=== PATIENT | male | born 1975 | race Two or more races ===

== ENCOUNTER → 2024-03-20 | Emergency (ER) | payer SELFPAY ==
[~2024-03-20] VITALS: Ht 172.7 cm; Wt 60.9 kg
[2024-03-20 19:32] VITALS: BP 116/67; PULSE 96; RESP 20; TEMP 98.1
== END | disposition still patient (30) ==
LOC: EMS 19:25 → EDSEX 19:25
DX: Z53.21 Procedure and treatment not carried out due to patient leaving prior to being seen by health care provider (principal)
CPT/HCPCS: 99281; Z7502

== ENCOUNTER 2024-12-26 23:00 | Emergency (ER) | payer MEDICAID ==
[~2024-12-26] VITALS: Ht 170.2 cm; Wt 59.5 kg
[~2024-12-26 23:00] MED LIST: ACET-784 PO; MECL-302 PO
[2024-12-26 23:34] VITALS: BP 129/76; PULSE 99; RESP 16; TEMP 98.5; O2SAT 100
[2024-12-27] MEDS ORDERED: MECL-134 PO (00:32)
[2024-12-27] MEDS: ONDANSETRON 4 MG TABLET PO ONE (01:00)
[2024-12-27] MEDS: MECLIZINE HCL 25 MG TABLET PO ONE (01:00)
== END 2024-12-27 01:04 | disposition home or self-care (01) ==
LOC: EMS 23:03
DX: R42 Dizziness and giddiness (principal); Z76.0 Encounter for issue of repeat prescription; E03.9 Hypothyroidism, unspecified
CPT/HCPCS: 99283; Q0162

== ENCOUNTER 2025-01-03 18:22 | Emergency (ER) | payer MEDICAID ==
[~2025-01-03] VITALS: Ht 170.2 cm; Wt 59.5 kg
[~2025-01-03 18:22] MED LIST changes: +ACET-66 PO; +LEVO50TA11 PO; +LEVO750T68 PO; +MECL-134 PO; +ONDA-104 PO
[2025-01-03 18:26] VITALS: BP 151/88; PULSE 104; RESP 18; TEMP 98.8; O2SAT 98
[2025-01-03 19:35] LABS: BASOPHILS % (AUTO) 0.5 % (0.0-2.0); EOSINOPHILS % (AUTO) 0.7 % (1.0-6.0); HEMOGLOBIN 10.8 g/dL (13.5-17.5); LYMPHOCYTES # (AUTO) 0.8 K/uL (1.0-4.8); LYMPHOCYTES % (AUTO) 37.2 % (22.0-44.0); MEAN CORPUSCULAR HEMOGLOBIN 25.7 pg (26.0-34.0); MEAN CORPUSCULAR HGB CONC 31.9 G/dL (31.0-37.0); MEAN CORPUSCULAR VOLUME 81 fL (80-100); MONOCYTES # (AUTO) 0.3 K/uL (0.1-1.0); MONOCYTES % (AUTO) 14.4 % (2.0-9.0); NEUTROPHILS # (AUTO) 1.1 K/uL (1.8-7.7); NEUTROPHILS % (AUTO) 47.2 % (40.0-70.0); PLATELET COUNT (AUTO) 283 K/uL (150-450); RED BLOOD CELL COUNT(AUTO) 4.22 MIL/uL (4.50-5.90); RED CELL DISTRIBUTION WIDTH 16.6 % (11.5-14.5); WHITE BLOOD COUNT (AUTO) 2.2 K/uL (4.5-11.0)
[2025-01-03 19:47] LABS: ANION GAP 7 mmol/L (8-16); CALCIUM, TOTAL 8.6 mg/dL (8.8-10.5); CARBON DIOXIDE 30 mmol/L (22-29); CHLORIDE 105 mmol/L (98-107); CREATININE 0.93 mg/dL (0.60-1.30); GLOMERULAR FILTR. RATE CALC > 60 mL/min (>60); GLUCOSE,RANDOM 97 mg/dL (70-110); SODIUM SERUM 142 mmol/L (136-145); UREA NITROGEN, BLOOD 15 mg/dL (7-18)
[2025-01-03 19:53] LABS: TROPONIN I-HIGH SENSITIVITY 15 ng/L (<76)
[2025-01-03] MEDS: ACETAMINOPHEN 325 MG TABLET PO ONE (20:27)
== END 2025-01-03 21:20 | disposition home or self-care (01) ==
LOC: EMS 18:22
DX: R07.89 Other chest pain (principal); E03.9 Hypothyroidism, unspecified; Z98.890 Other specified postprocedural states
CPT/HCPCS: 71045; 80048; 84484; 85025; 93005; 99285; 36415-L1; 36415-TC

== ENCOUNTER 2025-01-05 07:58 | Emergency (ER) | payer MEDICAID ==
[~2025-01-05] VITALS: Ht 170.2 cm; Wt 59.5 kg
[2025-01-05 08:08] VITALS: TEMP 97.4
[2025-01-05 08:26] LABS: BASOPHILS % (AUTO) 0.4 % (0.0-2.0); HEMATOCRIT 35.4 % (41-53); HEMOGLOBIN 11.3 g/dL (13.5-17.5); LYMPHOCYTES # (AUTO) 1.1 K/uL (1.0-4.8); MEAN CORPUSCULAR HEMOGLOBIN 25.7 pg (26.0-34.0); MEAN CORPUSCULAR VOLUME 80 fL (80-100); MONOCYTES # (AUTO) 0.4 K/uL (0.1-1.0); MONOCYTES % (AUTO) 16.6 % (2.0-9.0); NEUTROPHILS # (AUTO) 1.1 K/uL (1.8-7.7); PLATELET COUNT (AUTO) 320 K/uL (150-450); RED CELL DISTRIBUTION WIDTH 16.5 % (11.5-14.5); WHITE BLOOD COUNT (AUTO) 2.7 K/uL (4.5-11.0)
[2025-01-05 08:34] LABS: ANION GAP 9 mmol/L (8-16); CALCIUM, TOTAL 8.7 mg/dL (8.8-10.5); CARBON DIOXIDE 27 mmol/L (22-29); CHLORIDE 104 mmol/L (98-107); CREATININE 0.82 mg/dL (0.60-1.30); GLOMERULAR FILTR. RATE CALC > 60 mL/min (>60); GLUCOSE,RANDOM 91 mg/dL (70-110); POTASSIUM 3.8 mmol/L (3.5-5.1); SODIUM SERUM 140 mmol/L (136-145); UREA NITROGEN, BLOOD 15 mg/dL (7-18)
[2025-01-05 08:43] LABS: TROPONIN I-HIGH SENSITIVITY 14 ng/L (<76)
[2025-01-05 09:01] VITALS: BP 129/89; PULSE 88; RESP 16; O2SAT 98
[2025-01-05] MEDS: KETOROLAC TROMETHAMINE 30 MG/ML VIAL IM ONE (09:05)
[2025-01-05] MEDS ORDERED: IBUP-1492 PO (09:43)
== END 2025-01-05 09:58 | disposition home or self-care (01) ==
LOC: EMS 08:00
DX: M19.012 Primary osteoarthritis, left shoulder (principal); M54.6 Pain in thoracic spine; R42 Dizziness and giddiness; F15.10 Other stimulant abuse, uncomplicated; E03.9 Hypothyroidism, unspecified
CPT/HCPCS: 99285; 71045; 80048; 84484; 85025; 36415; 73030; 93005; 96372; J1885

== ENCOUNTER 2025-01-28 14:21 | Emergency (ER) | payer MEDICAID ==
[~2025-01-28] VITALS: Ht 170.2 cm; Wt 59.5 kg
[~2025-01-28 14:21] MED LIST changes: +IBUP-1492 PO
[2025-01-28 14:27] VITALS: TEMP 98.2
[2025-01-28] MEDS: MECLIZINE HCL 25 MG TABLET PO ONE (15:34)
[2025-01-28] MEDS: ONDANSETRON HCL 4 MG/2 ML VIAL IVP ONE (15:34)
[2025-01-28] MEDS: SODIUM CHLORIDE 0.9% 2,000 ML IV ONE (15:34)
[2025-01-28] MEDS: KETOROLAC TROMETHAMINE 30 MG/ML VIAL IVP ONE (15:34)
[2025-01-28] MEDS: ACETAMINOPHEN 500 MG TABLET PO ONE (15:35)
[2025-01-28 15:46] LABS: BASOPHILS % (AUTO) 0.4 % (0.0-2.0); EOSINOPHILS % (AUTO) 0.1 % (1.0-6.0); HEMATOCRIT 36.6 % (41-53); HEMOGLOBIN 11.8 g/dL (13.5-17.5); LYMPHOCYTES # (AUTO) 0.5 K/uL (1.0-4.8); LYMPHOCYTES % (AUTO) 17.2 % (22.0-44.0); MEAN CORPUSCULAR HEMOGLOBIN 25.9 pg (26.0-34.0); MEAN CORPUSCULAR HGB CONC 32.4 G/dL (31.0-37.0); MEAN CORPUSCULAR VOLUME 80 fL (80-100); MONOCYTES # (AUTO) 0.3 K/uL (0.1-1.0); MONOCYTES % (AUTO) 9.4 % (2.0-9.0); NEUTROPHILS # (AUTO) 2.2 K/uL (1.8-7.7); NEUTROPHILS % (AUTO) 72.9 % (40.0-70.0); PLATELET COUNT (AUTO) 266 K/uL (150-450); RED BLOOD CELL COUNT(AUTO) 4.57 MIL/uL (4.50-5.90); RED CELL DISTRIBUTION WIDTH 18.4 % (11.5-14.5)
[2025-01-28 15:56] LABS: ANION GAP 6 mmol/L (8-16); CALCIUM, TOTAL 8.5 mg/dL (8.8-10.5); CARBON DIOXIDE 27 mmol/L (22-29); CHLORIDE 101 mmol/L (98-107); GLOMERULAR FILTR. RATE CALC > 60 mL/min (>60); GLUCOSE,RANDOM 104 mg/dL (70-110); POTASSIUM 3.7 mmol/L (3.5-5.1); SODIUM SERUM 134 mmol/L (136-145); UREA NITROGEN, BLOOD 17 mg/dL (7-18)
[2025-01-28 16:04] LABS: CREATINE KINASE, TOTAL ONLY 295 U/L (39-308); TROPONIN I-HIGH SENSITIVITY 16 ng/L (<76)
[2025-01-28 16:09] LABS: RBC MORPHOLOGY COMMENT NORMAL RBC MORPH
[2025-01-28 17:31] VITALS: BP 133/63; PULSE 92; RESP 20; O2SAT 100
== END 2025-01-28 17:32 | disposition home or self-care (01) ==
LOC: EMS 14:22
DX: F41.0 Panic disorder [episodic paroxysmal anxiety] (principal); R42 Dizziness and giddiness; R51.9 Headache, unspecified; F15.10 Other stimulant abuse, uncomplicated; E03.9 Hypothyroidism, unspecified
CPT/HCPCS: 99285; 96374; 96361; 71045; 96375; 80048; 82550; 84484; 85025; 36415; 93005; J1885; J2405; J7030

== ENCOUNTER → 2025-02-12 | Emergency (ER) | payer MEDICAID | END | disposition left against medical advice (07) | LOC: EMS 18:38 | DX: R42 Dizziness and giddiness (principal); Z53.21 Procedure and treatment not carried out due to patient leaving prior to being seen by health care provider ==

== ENCOUNTER 2025-03-03 14:41 | Emergency (ER) | payer MEDICAID ==
[~2025-03-03] VITALS: Ht 170.2 cm; Wt 59.5 kg
[2025-03-03 14:45] VITALS: BP 115/78; PULSE 100; RESP 20; TEMP 98.2; O2SAT 98
== END 2025-03-03 16:36 | disposition left against medical advice (07) ==
LOC: EMS 14:41
DX: M54.50 Low back pain, unspecified (principal); Z53.21 Procedure and treatment not carried out due to patient leaving prior to being seen by health care provider

== ENCOUNTER 2025-05-10 00:23 | Emergency (ER) | payer MEDICAID ==
[~2025-05-10] VITALS: Ht 172.7 cm; Wt 62.0 kg
[2025-05-10 00:34] VITALS: TEMP 97.5
[2025-05-10 02:21] LABS: BASOPHILS % (AUTO) 0.7 % (0.0-2.0); EOSINOPHILS % (AUTO) 0.3 % (1.0-6.0); HEMOGLOBIN 11.8 g/dL (13.5-17.5); LYMPHOCYTES % (AUTO) 35.7 % (22.0-44.0); MEAN CORPUSCULAR HEMOGLOBIN 25.6 pg (26.0-34.0); MEAN CORPUSCULAR HGB CONC 31.9 G/dL (31.0-37.0); MEAN CORPUSCULAR VOLUME 80 fL (80-100); MONOCYTES # (AUTO) 0.3 K/uL (0.1-1.0); MONOCYTES % (AUTO) 11.2 % (2.0-9.0); NEUTROPHILS # (AUTO) 1.5 K/uL (1.8-7.7); NEUTROPHILS % (AUTO) 52.1 % (40.0-70.0); PLATELET COUNT (AUTO) 307 K/uL (150-450); RED BLOOD CELL COUNT(AUTO) 4.62 MIL/uL (4.50-5.90); RED CELL DISTRIBUTION WIDTH 17.4 % (11.5-14.5); WHITE BLOOD COUNT (AUTO) 2.9 K/uL (4.5-11.0)
[2025-05-10 02:30] LABS: ANION GAP 3 mmol/L (8-16); CALCIUM, TOTAL 8.6 mg/dL (8.8-10.5); CARBON DIOXIDE 29 mmol/L (22-29); CHLORIDE 102 mmol/L (98-107); CREATININE 1.17 mg/dL (0.60-1.30); GLOMERULAR FILTR. RATE CALC > 60 mL/min (>60); GLUCOSE,RANDOM 88 mg/dL (70-110); POTASSIUM 4.3 mmol/L (3.5-5.1); SODIUM SERUM 134 mmol/L (136-145); UREA NITROGEN, BLOOD 32 mg/dL (7-18)
[2025-05-10] MEDS: SODIUM CHLORIDE 0.9% 1,000 ML IV ONE (02:48)
[2025-05-10] MEDS: KETOROLAC TROMETHAMINE 30 MG/ML VIAL IVP ONE (02:48)
[2025-05-10] MEDS: METOCLOPRAMIDE HCL 5 MG/ML 2 ML VIAL IVP ONE (02:49)
[2025-05-10] MEDS: DiphenhydrAMINE HCL 50 MG/ML VIAL IVP ONE (02:49)
[2025-05-10 04:16] VITALS: BP 120/70; PULSE 85; RESP 15; O2SAT 97
== END 2025-05-10 01:30 | disposition home or self-care (01) ==
LOC: EMS 00:26
DX: G43.909 Migraine, unspecified, not intractable, without status migrainosus (principal); F15.90 Other stimulant use, unspecified, uncomplicated; E03.9 Hypothyroidism, unspecified; Z85.9 Personal history of malignant neoplasm, unspecified; Z98.890 Other specified postprocedural states; Z79.899 Other long term (current) drug therapy
CPT/HCPCS: 99284; 96374; 96375; 96361; 80048; 85025; 36415; J1885; J1200; J2765; J7030

== ENCOUNTER 2025-05-13 15:36 | Emergency (ER) | payer MEDICAID ==
[~2025-05-13] VITALS: Ht 170.2 cm; Wt 60.0 kg
[2025-05-13 16:05] VITALS: BP 97/63; PULSE 98; RESP 18; TEMP 97.9; O2SAT 100
[2025-05-13 17:43] LABS: BASOPHILS % (AUTO) 0.4 % (0.0-2.0); EOSINOPHILS % (AUTO) 1.2 % (1.0-6.0); HEMATOCRIT 35.4 % (41-53); HEMOGLOBIN 11.4 g/dL (13.5-17.5); LYMPHOCYTES # (AUTO) 0.8 K/uL (1.0-4.8); MEAN CORPUSCULAR HEMOGLOBIN 25.8 pg (26.0-34.0); MEAN CORPUSCULAR HGB CONC 32.2 G/dL (31.0-37.0); MEAN CORPUSCULAR VOLUME 80 fL (80-100); MONOCYTES # (AUTO) 0.3 K/uL (0.1-1.0); MONOCYTES % (AUTO) 12.4 % (2.0-9.0); NEUTROPHILS # (AUTO) 1.5 K/uL (1.8-7.7); PLATELET COUNT (AUTO) 313 K/uL (150-450); RED BLOOD CELL COUNT(AUTO) 4.42 MIL/uL (4.50-5.90); RED CELL DISTRIBUTION WIDTH 17.4 % (11.5-14.5); WHITE BLOOD COUNT (AUTO) 2.6 K/uL (4.5-11.0)
[2025-05-13 17:52] LABS: ANION GAP 4 mmol/L (8-16); CALCIUM, TOTAL 9.4 mg/dL (8.8-10.5); CARBON DIOXIDE 31 mmol/L (22-29); CHLORIDE 102 mmol/L (98-107); CREATININE 1.24 mg/dL (0.60-1.30); GLOMERULAR FILTR. RATE CALC > 60 mL/min (>60); GLUCOSE,RANDOM 95 mg/dL (70-110); POTASSIUM 4.1 mmol/L (3.5-5.1); SODIUM SERUM 137 mmol/L (136-145); UREA NITROGEN, BLOOD 27 mg/dL (7-18)
== END 2025-05-13 16:27 | disposition left against medical advice (07) ==
LOC: EMS 15:36
DX: R42 Dizziness and giddiness (principal); G43.909 Migraine, unspecified, not intractable, without status migrainosus; Z53.21 Procedure and treatment not carried out due to patient leaving prior to being seen by health care provider
CPT/HCPCS: 80048; 85025

== ENCOUNTER 2025-05-14 12:55 | Emergency (ER) | payer MEDICAID ==
[2025-05-15] MEDS ORDERED: MOXI3DRO25 OU (15:14)
[2025-05-15] MEDS ORDERED: KETO-108 OU (15:14)
== END 2025-05-14 14:06 | disposition left against medical advice (07) ==
LOC: EMS 12:55
DX: R04.0 Epistaxis (principal); Z53.21 Procedure and treatment not carried out due to patient leaving prior to being seen by health care provider

== ENCOUNTER 2025-05-15 14:00 | Emergency (ER) | payer MEDICAID ==
[~2025-05-15] VITALS: Ht 170.2 cm; Wt 59.5 kg
[2025-05-15 14:17] VITALS: TEMP 98.1
[2025-05-15 14:50] VITALS: BP 129/96; PULSE 96; RESP 16; O2SAT 98
[2025-05-15] MEDS: FLUORESCEIN SODIUM 1 MG STRIP OU ONE (15:03)
[2025-05-15] MEDS ORDERED: KETO-108 OU (15:14)
[2025-05-15] MEDS ORDERED: MOXI3DRO25 OU (15:14)
== END 2025-05-15 16:02 | disposition home or self-care (01) ==
LOC: EMS 14:05
DX: H10.33 Unspecified acute conjunctivitis, bilateral (principal); E03.9 Hypothyroidism, unspecified; F15.90 Other stimulant use, unspecified, uncomplicated; Z85.9 Personal history of malignant neoplasm, unspecified; Z98.890 Other specified postprocedural states; Z79.899 Other long term (current) drug therapy
CPT/HCPCS: 99283

== ENCOUNTER 2025-06-02 08:43 | Emergency (ER) | payer MEDICAID ==
[~2025-06-02] VITALS: Ht 170.2 cm; Wt 59.5 kg
[~2025-06-02 08:43] MED LIST changes: -ACET-66 PO; -ACET-784 PO; -IBUP-1492 PO; +KETO-108 OU; -LEVO750T68 PO; -MECL-134 PO; +MOXI3DRO25 OU; -ONDA-104 PO
[2025-06-02 08:47] VITALS: BP 126/83; PULSE 92; RESP 20; TEMP 98.3; O2SAT 99
[2025-06-02 10:10] LABS: PLATELET COUNT (AUTO) 302 K/uL (150-450); RED BLOOD CELL COUNT(AUTO) 4.35 MIL/uL (4.50-5.90); RED CELL DISTRIBUTION WIDTH 18.6 % (11.5-14.5); WHITE BLOOD COUNT (AUTO) 2.0 K/uL (4.5-11.0)
[2025-06-02 10:14] LABS: COVID AG,FIA SOURCE NASAL SWAB; SARS-COV2 (COVID) ANTIGEN,FIA Negative (Negative)
[2025-06-02 10:19] LABS: CALCIUM, TOTAL 9.2 mg/dL (8.8-10.5); CREATININE 1.00 mg/dL (0.60-1.30); GLOMERULAR FILTR. RATE CALC > 60 mL/min (>60); GLUCOSE,RANDOM 107 mg/dL (70-110); SODIUM SERUM 137 mmol/L (136-145); UREA NITROGEN, BLOOD 24 mg/dL (7-18)
== END 2025-06-02 11:35 | disposition home or self-care (01) ==
LOC: EMS 08:48
DX: F32.9 Major depressive disorder, single episode, unspecified (principal); F41.9 Anxiety disorder, unspecified; E03.9 Hypothyroidism, unspecified; F15.10 Other stimulant abuse, uncomplicated; Z20.822 Contact with and (suspected) exposure to COVID-19
CPT/HCPCS: 99283; 87426; 80048; 85025; 36415; G0480

== ENCOUNTER 2025-06-16 23:47 | Emergency (ER) | payer MEDICAID ==
[~2025-06-16] VITALS: Ht 170.2 cm; Wt 81.8 kg
[2025-06-17 00:21] VITALS: BP 114/74; PULSE 76; RESP 16; TEMP 98.1; O2SAT 100
[2025-06-17] MEDS ORDERED: MECL-302 PO (01:20)
== END 2025-06-17 01:46 | disposition home or self-care (01) ==
LOC: EMS 23:47
DX: R51.9 Headache, unspecified (principal); E03.9 Hypothyroidism, unspecified; F15.90 Other stimulant use, unspecified, uncomplicated; Z85.9 Personal history of malignant neoplasm, unspecified; Z98.890 Other specified postprocedural states; Z79.899 Other long term (current) drug therapy; Z76.0 Encounter for issue of repeat prescription
CPT/HCPCS: 99282; Z7502

== ENCOUNTER 2025-06-18 19:33 | Emergency (ER) | payer MEDICAID ==
[~2025-06-18] VITALS: Ht 175.3 cm; Wt 68.2 kg
[2025-06-18 19:37] VITALS: TEMP 97.9
[2025-06-18 20:22] LABS: PLATELET COUNT (AUTO) 328 K/uL (150-450); RED BLOOD CELL COUNT(AUTO) 4.49 MIL/uL (4.50-5.90); RED CELL DISTRIBUTION WIDTH 18.1 % (11.5-14.5); WHITE BLOOD COUNT (AUTO) 3.7 K/uL (4.5-11.0)
[2025-06-18 20:23] LABS: CALCIUM, TOTAL 8.9 mg/dL (8.8-10.5); CREATININE 1.06 mg/dL (0.60-1.30); GLOMERULAR FILTR. RATE CALC > 60 mL/min (>60); GLUCOSE,RANDOM 98 mg/dL (70-110); SODIUM SERUM 140 mmol/L (136-145); UREA NITROGEN, BLOOD 22 mg/dL (7-18)
[2025-06-18] MEDS: ONDANSETRON HCL 4 MG/2 ML VIAL IVP ONE (20:23)
[2025-06-18] MEDS: SODIUM CHLORIDE 0.9% 1,000 ML IV ONE (20:23)
[2025-06-18 21:21] VITALS: BP 166/103; PULSE 65; RESP 18; O2SAT 99
[2025-06-18 21:45] LABS: AMPHET/METH SCREEN,URINE POSITIVE (NEGATIVE); BARBITURATE SCREEN, URINE NEGATIVE (NEGATIVE); CANNABINOID SCREEN,URINE NEGATIVE (NEGATIVE); COCAINE SCREEN,URINE NEGATIVE (NEGATIVE); METHADONE SCREEN, URINE NEGATIVE (NEGATIVE)
[2025-06-18 21:46] LABS: PH,URINE DRUG SCREEN 7.0 (5.0-8.0)
[2025-06-18 21:48] LABS: ALCOHOL, URINE DRUG SCREEN NEGATIVE (NEGATIVE)
== END 2025-06-18 22:20 | disposition home or self-care (01) ==
LOC: EMS 19:33
DX: R53.1 Weakness (principal); F15.10 Other stimulant abuse, uncomplicated; R42 Dizziness and giddiness; R11.0 Nausea; F41.9 Anxiety disorder, unspecified; E03.9 Hypothyroidism, unspecified; Z79.899 Other long term (current) drug therapy
CPT/HCPCS: 99284; 96374; 80048; 85025; 36415; 82962; 93005; 80307; G0480; J2405; J7030

== ENCOUNTER 2025-08-16 15:10 | Emergency (ER) | payer MEDICAID ==
[~2025-08-16] VITALS: Ht 170.2 cm; Wt 59.1 kg
[~2025-08-16 15:10] MED LIST changes: -MOXI3DRO25 OU
[2025-08-16 15:29] VITALS: TEMP 97.2
[2025-08-16 16:37] LABS: PLATELET COUNT (AUTO) 341 K/uL (150-450); RED BLOOD CELL COUNT(AUTO) 4.94 MIL/uL (4.50-5.90); RED CELL DISTRIBUTION WIDTH 18.3 % (11.5-14.5); WHITE BLOOD COUNT (AUTO) 2.2 K/uL (4.5-11.0)
[2025-08-16 16:45] LABS: CALCIUM, TOTAL 8.7 mg/dL (8.8-10.5); CREATININE 0.64 mg/dL (0.60-1.30); GLOMERULAR FILTR. RATE CALC > 60 mL/min (>60); GLUCOSE,RANDOM 103 mg/dL (70-110); SODIUM SERUM 136 mmol/L (136-145); UREA NITROGEN, BLOOD 15 mg/dL (7-18)
[2025-08-16 17:01] LABS: RBC MORPHOLOGY COMMENT ABNORMAL RBC MORPH
[2025-08-16 17:32] LABS: ASPARTATE AMINOTRANSFERASE 41.0 U/L (15-37); TOTAL PROTEIN, SERUM 8.2 g/dL (6.4-8.2)
[2025-08-16] MEDS: KETOROLAC TROMETHAMINE 30 MG/ML VIAL IVP ONE (18:09)
[2025-08-16] MEDS: ACETAMINOPHEN 500 MG TABLET PO ONE (18:10)
[2025-08-16] MEDS: ONDANSETRON HCL 4 MG/2 ML VIAL IVP ONE (18:10)
[2025-08-16] MEDS: SODIUM CHLORIDE 0.9% 1,000 ML IV ONE (18:10)
[2025-08-16 20:00] VITALS: BP 112/80; PULSE 94; RESP 16; O2SAT 100
[2025-08-16] MEDS ORDERED: ACET-2247 PO (20:09)
== END 2025-08-16 20:15 | disposition home or self-care (01) ==
LOC: EMS 15:10
DX: R11.2 Nausea with vomiting, unspecified (principal); F15.90 Other stimulant use, unspecified, uncomplicated; E03.9 Hypothyroidism, unspecified; Z85.819 Personal history of malignant neoplasm of unspecified site of lip, oral cavity, and pharynx; Z98.890 Other specified postprocedural states; Z79.899 Other long term (current) drug therapy
CPT/HCPCS: 99284; 96374; 96375; 80048; 80076; 83690; 85025; 36415; J1885; J2405; J7030

== ENCOUNTER 2025-08-27 07:39 | Emergency (ER) | payer MEDICAID ==
[~2025-08-27] VITALS: Ht 165.1 cm; Wt 59.1 kg
[~2025-08-27 07:39] MED LIST changes: +ACET-2247 PO
[2025-08-27 07:57] VITALS: TEMP 98
[2025-08-27] MEDS: KETOROLAC TROMETHAMINE 60 MG/2 ML VIAL IM ONE (10:27)
[2025-08-27 12:10] VITALS: BP 124/84; PULSE 85; RESP 18; O2SAT 99
[2025-08-27] MEDS ORDERED: IBUP-1492 PO (13:37)
== END 2025-08-27 14:04 | disposition home or self-care (01) ==
LOC: EMS 07:40
DX: S16.1XXA Strain of muscle, fascia and tendon at neck level, initial encounter (principal); F15.90 Other stimulant use, unspecified, uncomplicated; E03.9 Hypothyroidism, unspecified; Z85.819 Personal history of malignant neoplasm of unspecified site of lip, oral cavity, and pharynx; Z98.890 Other specified postprocedural states; Z79.899 Other long term (current) drug therapy; X58.XXXA Exposure to other specified factors, initial encounter; Y93.89 Activity, other specified; Y92.89 Other specified places as the place of occurrence of the external cause; Y99.8 Other external cause status
CPT/HCPCS: 99285; 96372; J1885

== ENCOUNTER 2025-09-08 21:12 | Emergency (ER) | payer MEDICAID ==
[~2025-09-08] VITALS: Ht 170.2 cm; Wt 59.1 kg
[~2025-09-08 21:12] MED LIST changes: +IBUP-1492 PO
[2025-09-08 21:28] VITALS: BP 144/88; PULSE 96; RESP 20; TEMP 98.2; O2SAT 98
[2025-09-08 21:38] LABS: APPEARANCE,URINE CLEAR (CLEAR); GLUCOSE, URINE (UA) NEGATIVE (NEGATIVE); LEUKOCYTE ESTERASE ,URINE LARGE (NEGATIVE); NITRATE,URINE NEGATIVE (NEGATIVE); OCCULT BLOOD,URINE TRACE (NEGATIVE); SPECIFIC GRAVITIY, URINE 1.014 (1.003-1.030)
[2025-09-08 22:00] LABS: SQUAMOUS EPITHELIAL CELL,UR Moderate /LPF (None Seen)
[2025-09-08] MEDS: LIDOCAINE/PF 1% 2 ML VIAL IM ONE (23:00)
[2025-09-08] MEDS: CefTRIAXone SODIUM 1 GM/VIAL IM ONE (23:00)
== END 2025-09-08 23:24 | disposition home or self-care (01) ==
LOC: EMS 21:12
DX: N39.0 Urinary tract infection, site not specified (principal); R30.9 Painful micturition, unspecified; E03.9 Hypothyroidism, unspecified; F15.90 Other stimulant use, unspecified, uncomplicated; Z98.890 Other specified postprocedural states; Z79.899 Other long term (current) drug therapy; Z85.819 Personal history of malignant neoplasm of unspecified site of lip, oral cavity, and pharynx
CPT/HCPCS: 99283; 81001; 87077; 87086; 96372; J0696; J3490; 87186

== ENCOUNTER 2025-10-09 13:20 | Emergency (ER) | payer MEDICAID ==
[~2025-10-09] VITALS: Ht 170.2 cm; Wt 58.0 kg
[2025-10-09 13:26] VITALS: TEMP 98.1
[2025-10-09 13:40] VITALS: BP 135/78; PULSE 89; RESP 18; O2SAT 99
[2025-10-09] MEDS: ACETAMINOPHEN 500 MG TABLET PO ONE (13:53)
[2025-10-09] MEDS: LIDOCAINE 5% TRANSDERMAL PATCH TD ONE (13:53)
[2025-10-09] MEDS: KETOROLAC TROMETHAMINE 30 MG/ML VIAL IM ONE (13:53)
[2025-10-09] MEDS ORDERED: ACET-2247 PO (14:17)
[2025-10-09] MEDS ORDERED: IBUP-1492 PO (14:17)
[2025-10-09] MEDS ORDERED: LIDO-57 TP (14:17)
== END 2025-10-09 14:37 | disposition home or self-care (01) ==
LOC: EMS 13:22
DX: M54.6 Pain in thoracic spine (principal); F15.90 Other stimulant use, unspecified, uncomplicated; E03.8 Other specified hypothyroidism; Z85.819 Personal history of malignant neoplasm of unspecified site of lip, oral cavity, and pharynx; Z98.890 Other specified postprocedural states; Z79.899 Other long term (current) drug therapy
CPT/HCPCS: 99283; 96372; J1885

== ENCOUNTER 2025-10-16 12:53 | Emergency (ER) | payer MEDICAID ==
[~2025-10-16] VITALS: Ht 170.2 cm; Wt 59.0 kg
[~2025-10-16 12:53] MED LIST changes: +LIDO-57 TP
[2025-10-16 13:02] VITALS: TEMP 98.8
[2025-10-16 14:41] LABS: PLATELET COUNT (AUTO) 285 K/uL (150-450); RED BLOOD CELL COUNT(AUTO) 4.94 MIL/uL (4.50-5.90); RED CELL DISTRIBUTION WIDTH 19.4 % (11.5-14.5); WHITE BLOOD COUNT (AUTO) 2.9 K/uL (4.5-11.0)
[2025-10-16 14:47] LABS: CALCIUM, TOTAL 9.0 mg/dL (8.8-10.5); CREATININE 1.00 mg/dL (0.60-1.30); GLOMERULAR FILTR. RATE CALC > 60 mL/min (>60); GLUCOSE,RANDOM 103 mg/dL (70-110); SODIUM SERUM 138 mmol/L (136-145); UREA NITROGEN, BLOOD 16 mg/dL (7-18)
[2025-10-16 14:53] LABS: ASPARTATE AMINOTRANSFERASE 50.0 U/L (15-37); TOTAL PROTEIN, SERUM 8.8 g/dL (6.4-8.2)
[2025-10-16 14:57] LABS: TROPONIN I-HIGH SENSITIVITY 14 ng/L (<76)
[2025-10-16] MEDS ORDERED: ONDA-104 PO (15:16)
[2025-10-16] MEDS: MAG HYDROX/ALUMINUM HYD/SIMETH 30 ML SUSPENSION UDCUP PO ONE (15:17)
[2025-10-16] MEDS: FAMOTIDINE 20 MG TABLET PO ONE (15:18)
[2025-10-16] MEDS: ONDANSETRON 4 MG TABLET PO ONE (15:18)
[2025-10-16] MEDS: ACETAMINOPHEN 325 MG TABLET PO ONE (15:18)
[2025-10-16 15:19] VITALS: BP 140/90; PULSE 81; RESP 18; O2SAT 95
== END 2025-10-16 16:59 | disposition home or self-care (01) ==
LOC: EMS 13:15
DX: R42 Dizziness and giddiness (principal); R11.2 Nausea with vomiting, unspecified; M54.9 Dorsalgia, unspecified; E03.8 Other specified hypothyroidism; F15.90 Other stimulant use, unspecified, uncomplicated; Z98.890 Other specified postprocedural states; Z85.819 Personal history of malignant neoplasm of unspecified site of lip, oral cavity, and pharynx; Z79.899 Other long term (current) drug therapy
CPT/HCPCS: 99285; 71045; 80048; 80076; 84484; 85025; 36415; 93005; Q0162

== ENCOUNTER 2025-10-23 20:50 | Emergency (ER) | payer MEDICAID ==
[~2025-10-23] VITALS: Ht 170.2 cm; Wt 59.1 kg
[~2025-10-23 20:50] MED LIST changes: -KETO-108 OU; -MECL-302 PO; +ONDA-104 PO
[2025-10-23 20:59] VITALS: BP 147/94; PULSE 101; RESP 17; TEMP 98.1; O2SAT 100
== END 2025-10-23 23:00 | disposition left against medical advice (07) ==
LOC: EMS 20:50
DX: R04.0 Epistaxis (principal); Z53.21 Procedure and treatment not carried out due to patient leaving prior to being seen by health care provider
CPT/HCPCS: 99281; Z7502

== ENCOUNTER 2025-10-25 21:43 | Emergency (ER) | payer MEDICAID ==
[~2025-10-25] VITALS: Ht 170.2 cm; Wt 59.1 kg
[2025-10-25 21:45] VITALS: BP 144/99; PULSE 105; RESP 16; TEMP 98.2; O2SAT 99
[2025-10-25] MEDS ORDERED: KETOROLAC TROMETHAMINE 30 MG/ML VIAL IM ONE (22:30)
[2025-10-25] MEDS ORDERED: METH-812 PO (22:32)
[2025-10-25] MEDS ORDERED: IBUP-1492 PO (22:32)
[2025-10-25] MEDS ORDERED: LIDO-57 TP (22:32)
[2025-10-25] MEDS: LIDOCAINE 5% TRANSDERMAL PATCH TD ONE (23:08)
[2025-10-25] MEDS: KETOROLAC TROMETHAMINE 60 MG/2 ML VIAL IM ONE (23:08)
== END 2025-10-25 23:21 | disposition home or self-care (01) ==
LOC: EMS 21:43
DX: M54.2 Cervicalgia (principal); R25.2 Cramp and spasm; E03.8 Other specified hypothyroidism; G89.29 Other chronic pain; F15.90 Other stimulant use, unspecified, uncomplicated; Z98.890 Other specified postprocedural states; Z79.899 Other long term (current) drug therapy; Z85.819 Personal history of malignant neoplasm of unspecified site of lip, oral cavity, and pharynx
CPT/HCPCS: 99283; 96372; J1885

== ENCOUNTER 2025-10-28 15:34 | Emergency (ER) | payer MEDICAID ==
[~2025-10-28] VITALS: Ht 170.2 cm; Wt 61.4 kg
[~2025-10-28 15:34] MED LIST changes: +METH-812 PO
[2025-10-28 15:42] VITALS: BP 137/98; PULSE 102; RESP 17; TEMP 98.1; O2SAT 100
[2025-10-28] MEDS: KETOROLAC TROMETHAMINE 60 MG/2 ML VIAL IM ONE (16:47)
[2025-10-28] MEDS ORDERED: METH-659 PO (16:58)
[2025-10-28] MEDS ORDERED: IBUP-1554 PO (16:58)
== END 2025-10-28 17:28 | disposition home or self-care (01) ==
LOC: EMS 15:34
DX: M19.90 Unspecified osteoarthritis, unspecified site (principal); F15.10 Other stimulant abuse, uncomplicated; E03.8 Other specified hypothyroidism
CPT/HCPCS: 99283; 72050; 96372; J1885